=== PATIENT | male | born 1980 | race Caucasian/White ===

== ENCOUNTER 2024-01-18 11:29 | Emergency (ER) | payer BC ==
[~2024-01-18] VITALS: Ht 172.7 cm; Wt 101.7 kg
[2024-01-18 12:38] LABS: BASOPHILS % (AUTO) 0.3 % (0-1); EOSINOPHILS # (AUTO) 0.1 X10'3 (0-0.9); EOSINOPHILS % (AUTO) 0.8 % (0-6); HEMATOCRIT 41.9 % (42.0-52.0); HEMOGLOBIN 13.6 g/dl (14.0-17.9); LYMPHOCYTES # (AUTO) 1.5 X10'3 (1.1-4.8); LYMPHOCYTES % (AUTO) 11.9 % (21-51); MEAN CORPUSCULAR HEMOGLOBIN 28.1 PG (27.0-31.0); MEAN CORPUSCULAR HGB CONC 32.5 g/dL (33.0-36.5); MEAN CORPUSCULAR VOLUME 86.7 FL (78-98); MEAN PLATELET VOLUME 7.3 FL (7.4-10.4); MONOCYTES % (AUTO) 8.1 % (2-12); NEUTROPHILS # (AUTO) 9.9 X10'3 (1.8-7.7); NEUTROPHILS % (AUTO) 78.9 % (42-75); PLATELET COUNT 374 X10'3 (140-440); RED BLOOD COUNT 4.83 X10'6 (4.70-6.10); RED CELL DISTRIBUTION WIDTH 13.6 % (11.5-14.5); WHITE BLOOD COUNT 12.6 X10'3 (4.5-11.0)
[2024-01-18 12:47] LABS: ALBUMIN 4.5 G/DL (3.4-5.0); ANION GAP 14 (8-16); BLOOD UREA NITROGEN 13 MG/DL (7-18); BUN/CREATININE RATIO 12.4 (10.0-20.0); CALCIUM 9.4 MG/DL (8.5-10.1); CHLORIDE 102 MMOL/L (99-107); CREATININE 1.05 MG/DL (0.60-1.10); GLUCOSE 124 MG/DL (70-104); POTASSIUM 3.6 MMOL/L (3.5-5.1); SODIUM 140 MMOL/L (135-145); TOTAL CARBON DIOXIDE 24.2 MMOL/L (24-32); eCRCL 90 ML/MIN; eGFR 78 ML/MIN
[2024-01-18 12:48] LABS: ETHANOL < 10 MG/DL (<10)
[2024-01-18 13:00] LABS: BILIRUBIN,URINE NEGATIVE (Neg); CLARITY,URINE CLEAR (Clear); COLOR,URINE YELLOW (Yellow); GLUCOSE, URINE NEGATIVE (Neg); KETONES,URINE NEGATIVE (Neg); LEUKOCYTE ESTERASE ,URINE NEGATIVE (Neg); NITRITES, URINE NEGATIVE (Neg); OCCULT BLOOD,URINE NEGATIVE (Neg); PROTEIN,URINE NEGATIVE (Neg); UROBILINOGEN,URINE 0.2 E.U/dL (0.2-1.0)
[2024-01-18 13:07] LABS: UA COLLECTION TYPE VOIDED
[2024-01-18 13:12] LABS: URINE AMPHETAMINE SCREEN NEGATIVE (Neg); URINE BARBITUATE SCREEN NEGATIVE (Neg); URINE BENZODIAZEPINES SCREEN NEGATIVE (Neg); URINE CANNABINOID SCREEN POSITIVE (Neg); URINE COCAINE SCREEN NEGATIVE (Neg); URINE METHADONE SCREEN NEGATIVE (Neg); URINE OPIATE SCREEN NEGATIVE (Neg); URINE PHENCYCLIDINE SCREEN NEGATIVE (Neg)
[2024-01-18] MEDS: LORazepam 2 mg/ml vial IM ONE (16:10)
[2024-01-18] MEDS: haloperidol lactate 5mg/ml inj IM ONE (16:10)
[2024-01-18 18:28] VITALS: BP 103/62; PULSE 88; TEMP 98.1; O2SAT 98
[2024-01-19] MEDS: haloperidol lactate 5mg/ml inj IM STA (03:44)
[2024-01-19] MEDS: LORazepam 2 mg/ml vial IM STA (03:45)
[2024-01-19] MEDS ORDERED: SERT50TA PO (07:44)
[2024-01-19] MEDS: haloperidol 5mg tablet PO SCH (08:00)
[2024-01-19 11:55] VITALS: RESP 16
[2024-01-19] MEDS: LORazepam 1 MG tablet PO ONE (13:55)
[2024-01-19] MEDS: haloperidol 5mg tablet PO ONE (13:55)
[2024-01-19] MEDS ORDERED: sertraline 50mg tablet PO SCH (21:00)
== END 2024-01-19 13:57 ==
LOC: ER 11:29
DX: F31.89 Other bipolar disorder (principal); Z20.822 Contact with and (suspected) exposure to COVID-19; Z88.8 Allergy status to other drugs, medicaments and biological substances; Z79.899 Other long term (current) drug therapy
CPT/HCPCS: 36415; 80048; 80305; 80320; 81003; 85025; 87811; 96372; 99285; J1630; J2060

== ENCOUNTER 2024-06-08 10:09 | Inpatient (IN) | payer BC ==
[~2024-06-08] VITALS: Ht 172.7 cm; Wt 108.0 kg
[~2024-06-08 10:09] MED LIST: SERT50TA PO
[2024-06-08] MEDS: LORazepam 1 MG tablet PO ONE (10:52)
[2024-06-08] MEDS: OLANZapine 5mg rapidly disint. tablet PO ONE (10:55)
[2024-06-08 10:56] LABS: BILIRUBIN,URINE NEGATIVE (Neg); CLARITY,URINE CLEAR (Clear); COLOR,URINE YELLOW (Yellow); GLUCOSE, URINE NEGATIVE (Neg); KETONES,URINE NEGATIVE (Neg); LEUKOCYTE ESTERASE ,URINE NEGATIVE (Neg); NITRITES, URINE NEGATIVE (Neg); OCCULT BLOOD,URINE NEGATIVE (Neg); PROTEIN,URINE TRACE mg/dl (Neg); UROBILINOGEN,URINE 0.2 E.U/dL (0.2-1.0)
[2024-06-08 10:58] LABS: UA COLLECTION TYPE CLN CATCH MIDSTREAM
[2024-06-08 10:59] LABS: BASOPHILS # (AUTO) 0.1 X10'3 (0-0.2); BASOPHILS % (AUTO) 0.5 % (0-1); EOSINOPHILS # (AUTO) 0.1 X10'3 (0-0.9); EOSINOPHILS % (AUTO) 0.7 % (0-6); HEMATOCRIT 45.8 % (42.0-52.0); HEMOGLOBIN 15.3 g/dl (14.0-17.9); LYMPHOCYTES # (AUTO) 1.8 X10'3 (1.1-4.8); LYMPHOCYTES % (AUTO) 15.2 % (21-51); MEAN CORPUSCULAR HEMOGLOBIN 28.6 PG (27.0-31.0); MEAN CORPUSCULAR HGB CONC 33.3 g/dL (33.0-36.5); MEAN PLATELET VOLUME 6.9 FL (7.4-10.4); MONOCYTES # (AUTO) 0.6 X10'3 (0-0.9); MONOCYTES % (AUTO) 5.1 % (2-12); NEUTROPHILS # (AUTO) 9.1 X10'3 (1.8-7.7); NEUTROPHILS % (AUTO) 78.5 % (42-75); PLATELET COUNT 327 X10'3 (140-440); RED BLOOD COUNT 5.33 X10'6 (4.70-6.10); RED CELL DISTRIBUTION WIDTH 13.3 % (11.5-14.5); WHITE BLOOD COUNT 11.5 X10'3 (4.5-11.0)
[2024-06-08 11:05] LABS: ALANINE AMINOTRANSFERASE 32 U/L (12-78); ALBUMIN/GLOBULIN RATIO 1.5 (1.1-1.5); ALKALINE PHOSPHATASE 34 IU/L (46-116); ANION GAP 11 (8-16); ASPARTATE AMINO TRANSFERASE 11 U/L (10-37); BILIRUBIN,TOTAL 0.6 MG/DL (0.1-1.0); BLOOD UREA NITROGEN 17 MG/DL (7-18); BUN/CREATININE RATIO 16.7 (10.0-20.0); CALCIUM 10.1 MG/DL (8.5-10.1); CHLORIDE 101 MMOL/L (99-107); CREATININE 1.02 MG/DL (0.60-1.10); GLUCOSE 124 MG/DL (70-104); SODIUM 138 MMOL/L (135-145); TOTAL CARBON DIOXIDE 25.9 MMOL/L (24-32); TOTAL PROTEIN 8.3 G/DL (6.4-8.2); eCRCL 102 ML/MIN; eGFR 80 ML/MIN
[2024-06-08 11:06] LABS: MUCUS STRANDS MANY /LPF (Neg); SQUAMOUS EPITHELIAL CELL,UR FEW /LPF (FEW)
[2024-06-08 11:07] LABS: HYALINE CASTS 0-3 /LPF (NEGATIVE)
[2024-06-08 11:09] LABS: BACTERIA,URINE 1+ /HPF (Neg); RBC,URINE NONE SEEN /HPF (0-2); URINE AMPHETAMINE SCREEN NEGATIVE (Neg); URINE BARBITUATE SCREEN NEGATIVE (Neg); URINE BENZODIAZEPINES SCREEN NEGATIVE (Neg); URINE CANNABINOID SCREEN POSITIVE (Neg); URINE COCAINE SCREEN NEGATIVE (Neg); URINE METHADONE SCREEN NEGATIVE (Neg); URINE OPIATE SCREEN NEGATIVE (Neg); URINE PHENCYCLIDINE SCREEN NEGATIVE (Neg); WBC,URINE 0-4 /HPF (0-4)
[2024-06-08 11:16] LABS: ETHANOL < 10 MG/DL (<10); THYROID STIMULATING HORMONE 0.71 ulU/ml (0.34-4.50)
[2024-06-08] MEDS ORDERED: OLAN10TA40 PO (13:50)
[2024-06-08 17:12] VITALS: BP 125/96; PULSE 105; RESP 18; TEMP 97.7; O2SAT 98
[2024-06-08] MEDS ORDERED: acetaminophen 325mg tablet PO PRN (17:15)
[2024-06-08] MEDS ORDERED: magnesium hydroxide 30ml (MOM) UD suspension PO PRN (17:15)
[2024-06-08] MEDS ORDERED: OLAN10TA73 PO (17:18)
[2024-06-08] MEDS ORDERED: LITH600C PO (17:18)
[2024-06-08 18:17] VITALS: RESP 18; O2SAT 98
[2024-06-08 20:00] VITALS: BP 157/68; PULSE 71; RESP 16; TEMP 97.5; O2SAT 98
[2024-06-08] MEDS: mirtazapine 15mg tablet PO ONE ×2 (21:30→21:39)
[2024-06-08] MEDS ORDERED: mirtazapine 15mg tablet PO SCH (21:30)
[2024-06-08] MEDS: mag hydrox/Alum hydrox/simeth 30ml oral suspension PO PRN (21:39)
[2024-06-09 02:43] LABS: HEMOGLOBIN A1C 5.3 % (4.5-6.2)
[2024-06-09 06:14] LABS: CHOL/HDL RATIO 4.5 (0.00-4.99); CHOLESTEROL 186 MG/DL (0-200); HDL CHOLESTEROL 41 MG/DL (35-60); LDL CHOLESTEROL 109 MG/DL (50-100); TRIGLYCERIDES 121 MG/DL (20-135)
[2024-06-09 07:30] VITALS: BP 116/75; PULSE 77; RESP 14; TEMP 97.8; O2SAT 99
[2024-06-09] MEDS: olanzapine 10mg tablet PO SCH ×2 (07:56→20:27)
[2024-06-09] MEDS: loperamide 2mg capsule PO PRN (10:54)
[2024-06-09] MEDS: propranolol 10mg tablet PO SCH (11:38)
[2024-06-09 19:00] VITALS: RESP 16; O2SAT 98
[2024-06-09 20:00] VITALS: BP 119/68; PULSE 92; RESP 16; TEMP 97.3; O2SAT 98
[2024-06-09] MEDS: mirtazapine 15mg tablet PO SCH (20:27)
[2024-06-09] MEDS: lithium carbonate 150mg capsule PO SCH (20:29)
[2024-06-10 07:49] LABS: BASOPHILS % (AUTO) 0.5 % (0-1); EOSINOPHILS # (AUTO) 0.2 X10'3 (0-0.9); EOSINOPHILS % (AUTO) 3.2 % (0-6); HEMOGLOBIN 14.2 g/dl (14.0-17.9); LYMPHOCYTES # (AUTO) 2.2 X10'3 (1.1-4.8); LYMPHOCYTES % (AUTO) 31.8 % (21-51); MEAN CORPUSCULAR HEMOGLOBIN 28.5 PG (27.0-31.0); MEAN CORPUSCULAR HGB CONC 33.2 g/dL (33.0-36.5); MEAN CORPUSCULAR VOLUME 85.9 FL (78-98); MEAN PLATELET VOLUME 6.8 FL (7.4-10.4); MONOCYTES # (AUTO) 0.6 X10'3 (0-0.9); MONOCYTES % (AUTO) 9.1 % (2-12); NEUTROPHILS # (AUTO) 3.9 X10'3 (1.8-7.7); NEUTROPHILS % (AUTO) 55.4 % (42-75); PLATELET COUNT 254 X10'3 (140-440); RED CELL DISTRIBUTION WIDTH 13.1 % (11.5-14.5); WHITE BLOOD COUNT 7.1 X10'3 (4.5-11.0)
[2024-06-10 08:13] VITALS: RESP 16; O2SAT 97
[2024-06-10 08:15] VITALS: BP 125/71; PULSE 80; RESP 16; TEMP 98.2; O2SAT 97
[2024-06-10 19:00] VITALS: RESP 18; O2SAT 98
[2024-06-10 19:14] VITALS: BP 153/94; PULSE 96; RESP 22; TEMP 97.8; O2SAT 98
[2024-06-11] MEDS: temazepam 15mg capsule PO PRN (01:18)
[2024-06-11 07:00] VITALS: BP 123/70; PULSE 79; RESP 18; TEMP 98; O2SAT 97
[2024-06-11 19:00] VITALS: BP 135/86; PULSE 128; RESP 18; TEMP 97.4; O2SAT 95
[2024-06-12 07:45] VITALS: BP 113/79; PULSE 108; RESP 16; TEMP 100.1; O2SAT 96
[2024-06-12 08:00] VITALS: RESP 16; O2SAT 96
[2024-06-12] MEDS: acetaminophen 325mg tablet PO PRN (08:35)
[2024-06-12] MEDS: HALLS - SOOTHE MENTHOL 1.8 MG cough drop LOZENGE MM PRN (11:37)
[2024-06-12] MEDS ORDERED: TEMA15CA5 PO (16:04)
[2024-06-12] MEDS ORDERED: PROP10TA10 PO (16:04)
[2024-06-12] MEDS ORDERED: LITH600C PO (16:04)
[2024-06-12] MEDS ORDERED: MIRT-87 PO (16:04)
[2024-06-12] MEDS ORDERED: OLAN10TA73 PO (16:04)
== END 2024-06-12 17:23 | disposition home or self-care (01) | DRG 885 ==
LOC: ER 10:10 → ED HOLD 14:30 → ADULT MH 17:06
PROVIDERS: ADMIT Student in an Organized Health Care Education/Training Program; ATTEND Student in an Organized Health Care Education/Training Program
PROC: GZHZZZZ Group Psychotherapy (ICD-10-PCS; principal; 2024-06-10)
PROC: GZ51ZZZ Individual Psychotherapy, Behavioral (ICD-10-PCS; 2024-06-10)
DX: F31.9 Bipolar disorder, unspecified (principal); U07.1 COVID-19; R45.851 Suicidal ideations; F41.0 Panic disorder [episodic paroxysmal anxiety]; Z82.0 Family history of epilepsy and other diseases of the nervous system; Z81.8 Family history of other mental and behavioral disorders; Z88.8 Allergy status to other drugs, medicaments and biological substances; Z88.5 Allergy status to narcotic agent
CPT/HCPCS: 36415; 80053; 80061; 80178; 80305; 80320; 81001; 83036; 84443; 85025; 87081; 87811; 99285